=== PATIENT | female | born 1945 | race Caucasian/White ===

== ENCOUNTER 2017-09-18 18:58 | Emergency (ER) | payer OTHER ==
[~2017-09-18] VITALS: Ht 157.5 cm; Wt 79.7 kg
[~2017-09-18 18:58] MED LIST: CELEBREX200 MG PO; Ecotrin PO; Feosol PO; KlonoPIN PO; Levothroid,Synthroid PO; NORCO 5/3251 TABLET PO; PERCOCET 5/31 TABLET PO; Paxil PO; Relafen PO; SENOKOT S,PE1 TABLET PO; Singulair PO; ZESTRIL,PRINIVI10 M1 PO; ZyrTEC PO
[2017-09-18] MEDS ORDERED: MOTRIN800 MG PO (21:24)
[2017-09-18 22:20] VITALS: BP 178/81
== END 2017-09-18 22:46 | disposition home or self-care (01) ==
LOC: EME 18:58
PROC: 2W3RX1Z Immobilization of Left Lower Leg using Splint (ICD-10-PCS; principal; 2017-09-18)
DX: S93.402A Sprain of unspecified ligament of left ankle, initial encounter (principal); S80.01XA Contusion of right knee, initial encounter; W01.0XXA Fall on same level from slipping, tripping and stumbling without subsequent striking against object, initial encounter; Y93.01 Activity, walking, marching and hiking; Y92.89 Other specified places as the place of occurrence of the external cause; J45.909 Unspecified asthma, uncomplicated; I10 Essential (primary) hypertension; K21.9 Gastro-esophageal reflux disease without esophagitis; F32.9 Major depressive disorder, single episode, unspecified; F41.9 Anxiety disorder, unspecified; Z96.653 Presence of artificial knee joint, bilateral; Z88.0 Allergy status to penicillin; Z88.5 Allergy status to narcotic agent
CPT/HCPCS: 73564; 73610; 73630; 99281; 99284